=== PATIENT | female | born 1980 | race Two or more races ===

== ENCOUNTER 2024-03-23 05:49 | Emergency (ER) | payer OTHER ==
[~2024-03-23] VITALS: Ht 157.5 cm; Wt 109.1 kg
[2024-03-23 05:55] VITALS: BP 122/61; PULSE 68; RESP 17; TEMP 97.7
[2024-03-23] MEDS: DiphenhydrAMINE HCL 25 MG CAPSULE PO ONE (06:31)
[2024-03-23] MEDS: BENZOCAINE/RESORCINOL 30 GM CREAM TP ONE (06:33)
== END 2024-03-23 06:46 | disposition home or self-care (01) ==
LOC: EMS 05:49
DX: L29.9 Pruritus, unspecified (principal); F41.9 Anxiety disorder, unspecified; J45.909 Unspecified asthma, uncomplicated
CPT/HCPCS: 99283

== ENCOUNTER 2024-04-12 10:00 | Emergency (ER) | payer OTHER ==
[~2024-04-12] VITALS: Ht 157.5 cm; Wt 113.6 kg
[2024-04-12 10:04] VITALS: BP 155/83; PULSE 107; RESP 20; TEMP 98.3
== END 2024-04-12 12:13 | disposition left against medical advice (07) ==
LOC: EMS 10:01
DX: F41.0 Panic disorder [episodic paroxysmal anxiety] (principal); Z53.21 Procedure and treatment not carried out due to patient leaving prior to being seen by health care provider